=== PATIENT | female | born 1970 | race Caucasian/White ===

== ENCOUNTER 2018-02-15 17:22 | Emergency (ER) | payer OTHER ==
[~2018-02-15] VITALS: Ht 162.6 cm; Wt 56.7 kg
[~2018-02-15 17:22] MED LIST: MEDROLPACK PO; ORPH100T PO
[2018-02-15] MEDS ORDERED: CLONAZEPAM1 MG PO (17:34)
[2018-02-15] MEDS ORDERED: BENADRYL25 MG PO (17:35)
== END 2018-02-15 21:56 | disposition home or self-care (01) ==
LOC: ER 17:22
DX: T78.1XXA Other adverse food reactions, not elsewhere classified, initial encounter (principal); R21 Rash and other nonspecific skin eruption

== ENCOUNTER 2018-05-23 08:20 | Emergency (ER) | payer OTHER ==
[~2018-05-23] VITALS: Ht 165.1 cm; Wt 54.9 kg
== END 2018-05-23 10:57 | disposition home or self-care (01) ==
LOC: ER 08:20
DX: B34.9 Viral infection, unspecified (principal)

== ENCOUNTER 2019-09-04 18:28 | Emergency (ER) | payer OTHER ==
[~2019-09-04] VITALS: Ht 165.1 cm; Wt 55.3 kg
[~2019-09-04 18:28] MED LIST changes: +BENADRYL25 MG PO; +CLONAZEPAM1 MG PO
== END 2019-09-04 21:49 | disposition home or self-care (01) ==
LOC: ER 18:28
DX: J06.9 Acute upper respiratory infection, unspecified (principal); B34.9 Viral infection, unspecified